=== PATIENT | male | born 1995 | race Caucasian/White ===

== ENCOUNTER 2020-12-17 17:05 | Emergency (ER) | payer OTHER, SELFPAY ==
[2020-12-17 17:35] VITALS: BP 145/77; PULSE 105; RESP 20; TEMP 36.7; O2SAT 100
--- NOTE | 2020-12-17 19:53 | ED.EYEPROB ---
HPI - Eye Problem General Chief complaint: Eye Problems Stated complaint: eye injury Time Seen by Provider: 12/17/20 19:41 Source: patient Mode of arrival: ambulatory Limitations: no limitations History of Present Illness HPI Narrative: Patient is a 25 year old male who presents complaining of right eye pain. 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 Patient reports using eyewash station at work and flushing eye x4. He denies visual changes, denies foreign body sensation at this time. chief complaint: eye pain Related Data Allergies Allergy/AdvReac Type Severity Reaction Status Date / Time No Known Allergies Allergy Unverified 12/17/20 19:21 Review of Systems Review of Systems: Narrative: CONSTITUTIONAL: Denies fever, chills, or sweats. EYES: Denies visual changes, reports redness and irritation ENT: Denies rhinorrhea, congestion, sore throat, or otalgia. CARDIOVASCULAR: Denies chest pain, palpitations, or edema. RESPIRATORY: Denies cough or dyspnea. GASTROINTESTINAL: Denies abdominal pain, nausea, vomiting, or diarrhea. GENITOURINARY: Denies dysuria or hematuria. SKIN: Denies rash or itching. MUSCULOSKELETAL: Denies back pain, joint pain, or myalgia. NEUROLOGIC: Denies headache, numbness, dizziness, or weakness. PSYCHIATRIC: Denies anxiety or depression. [facility] Past Medical History Medical History No significant past medical history Surgical History Surgical History No significant past surgical history Family History Family History (Updated 12/17/20 @ 20:08 by DAYANARA Sheehan) Other No significant family history Social History Social History (Updated 12/17/20 @ 20:09 by DAYANARA Sheehan) Smoking status: Current every day smoker Tobacco type: cigarettes Alcohol intake: current Alcohol use details: Occasional Substance use: current Substance use type: marijuana Living arrangements: with family Occupation/Education: occupation Exam Narrative: Exam Narrative: GENERAL: Well-appearing, well-nourished, and in no acute distress. HEAD: Normocephalic, atraumatic. EYES: EOMI. Right eye sclera reddened, mild edema to upper eyelid. Conjunctiva are normal. ENT: Mucous membranes pink and moist. CHEST: No respiratory distress. HEART: Regular rate and rhythm. EXTREMITIES: Normal range of motion. No edema. SKIN: Warm, dry, no rash. NEURO: No focal deficits. Alert and oriented x3. Gait steady. PSYCH: Normal affect. No signs of depression or anxiety. Course Vital Signs Vital signs: Vital Signs Temperature 36.7 C 12/17/20 17:35 Pulse Rate 105 H 12/17/20 17:35 Respiratory Rate 20 12/17/20 17:35 Blood Pressure 145/77 H 12/17/20 17:35 Pulse Oximetry 100 12/17/20 17:35 Temperature 36.7 C 12/17/20 17:35 Pulse Rate 105 H 12/17/20 17:35 Respiratory Rate 20 12/17/20 17:35 Blood Pressure 145/77 H 12/17/20 17:35 Pulse Oximetry 100 12/17/20 17:35 Reviewed. Patient has been instructed to follow-up with his PCP regarding his blood pressure. Procedures Other Procedure Procedure 1: Other Procedure: Right eye was anesthetized with 1 drop of tetracaine and anesthesia was achieved. The eye was flushed with eyewash. Lid was inverted and examined. Moistened Q-tip was used to sweep underneath the upper eyelid with no foreign bodies resulting. Cornea was dyed with fluorescein and 1 abrasion or ulceration was noted. Patient tolerated procedure well. MDM - Eye Problem MDM Narrative Medical decision making narrative: Patient therapy examined, no foreign bodies noted. Patient has corneal abrasion. Discussed antibiotic treatment as well as follow-up with accounting administrator. Patient agrees with plan of care. Patient is stable for discharge home with outpatient follow-up as discussed. Differential
[2020-12-17] MEDS: TETRACAINE HCL 0.5% OPHTH SOLN 4 ML BTL 1 DROP EACH EYE (20:03)
[2020-12-17] MEDS: FLUORESCEIN SOD 1 MG/STRIP (20:43)
[2020-12-17] MEDS: DACRIOSE EYE IRRIGATION 118 ML BOTTLE (20:43)
[2020-12-17] MEDS: TETRACAINE HCL 0.5% OPHTH SOLN 4 ML BTL 1 DROP (20:44)
== END 2020-12-17 20:47 | disposition home or self-care (01) ==
PROVIDERS: Emergency Provider Nurse Practitioner
DX: S05.01XA Injury of conjunctiva and corneal abrasion without foreign body, right eye, initial encounter (principal); F17.210 Nicotine dependence, cigarettes, uncomplicated; R03.0 Elevated blood-pressure reading, without diagnosis of hypertension; X58.XXXA Exposure to other specified factors, initial encounter
CPT/HCPCS: 99283; A9270

== ENCOUNTER 2021-04-07 13:37 | Emergency (ER) | payer OTHER, SELFPAY ==
--- NOTE | ~2021-04-07 | XR_ITS ---
EXAMINATION: XR hand LT 2V INDICATION: Right hand pain TECHNIQUE: Two views of the right hand are obtained. COMPARISON: None available FINDINGS: There is no fracture, dislocation, or subluxation. The bones, soft tissues, and joint space s are normal. IMPRESSION: 1. No acute osseous abnormality. Reviewed, dictated and finalized at location A.
[2021-04-07 13:42] VITALS: BP 142/89; PULSE 85; RESP 18; TEMP 36.8; O2SAT 100
--- NOTE | 2021-04-07 14:19 | ED.UPPEXIN ---
HPI - Extremity Injury (Upper) General Chief Complaint: Extremity Injury, Upper Stated Complaint: Smacked L hand with a hammer Time Seen by Provider: 04/07/21 13:53 Source: patient Mode of arrival: ambulatory Limitations: no limitations History of Present Illness HPI narrative: Patient is a 25 year old male who presents complaining of left hand pain after hitting hand with hammer at work. Patient has full range of motion to hand, he denies other injuries. Abrasion noted, unknown tetanus status. Patient has no significant medical history. He has not taken any [id number] medications for pain prior to arrival. Related Data Allergies Allergy/AdvReac Type Severity Reaction Status Date / Time No Known Allergies Allergy Unverified 04/07/21 13:45 Review of Systems Review of Systems: CONSTITUTIONAL: Denies fever, chills, or sweats. EYES: Denies visual changes, redness, or discharge. ENT: Denies rhinorrhea, congestion, sore throat, or otalgia. CARDIOVASCULAR: Denies chest pain, palpitations, or edema. RESPIRATORY: Denies cough or dyspnea. GASTROINTESTINAL: Denies abdominal pain, nausea, vomiting, or diarrhea. GENITOURINARY: Denies dysuria or hematuria. SKIN: Denies rash or itching. MUSCULOSKELETAL: Reports left hand pain NEUROLOGIC: Denies headache, numbness, dizziness, or weakness. PSYCHIATRIC: Denies anxiety or depression. [facility] Past Medical History Medical History No significant past medical history Surgical History Surgical History No significant past surgical history Family History Family History Other No significant family history Social History Social History Smoking status: Current every day smoker Tobacco type: cigarettes Alcohol intake: current Alcohol use details: Occasional Substance use: current Substance use type: marijuana Comments At the time of signature, I have reviewed and agree with nursing past medical, surgical, social, and family history unless otherwise noted. Please see nursing chart for further information. There is no relevant family history pertinent to the presenting complaint. Exam Narrative: GENERAL: Well-appearing, well-nourished, and in no acute distress. HEAD: Normocephalic, atraumatic. EYES: EOMI. No redness or drainage. Conjunctiva are normal. ENT: Mucous membranes pink and moist. CHEST: No respiratory distress. HEART: Regular rate and rhythm. EXTREMITIES: Normal range of motion. Mild edema left hand, small amount of ecchymosis, abrasion thenar palm, distal sensation intact good capillary refill SKIN: Warm, dry, no rash. NEURO: No focal deficits. Alert and oriented x3. Gait steady. PSYCH: Normal affect. No signs of depression or anxiety. Course Vital Signs Vital signs: Vital Signs Temperature 36.8 C 04/07/21 13:42 Pulse Rate 85 04/07/21 13:42 Respiratory Rate 18 04/07/21 13:42 Blood Pressure 142/89 H 04/07/21 13:42 Pulse Oximetry 100 04/07/21 13:42 Temperature 36.8 C 04/07/21 13:42 Pulse Rate 85 04/07/21 13:42 Respiratory Rate 18 04/07/21 13:42 Blood Pressure 142/89 H 04/07/21 13:42 Pulse Oximetry 100 04/07/21 13:42 MDM - Extremity Injury (Upper) MDM Narrative Medical decision making narrative: X-ray shows no acute osseous abnormality. Patient's wound cleaned, Neosporin applied. Patient's tetanus updated at this time, Kennedy wrap applied. Instructed on ice and elevation as well as use of NSAIDs for pain. Patient agrees with plan of care. Patient is stable for discharge home with outpatient follow-up as needed. Differential Diagnosis Differential diagnosis: Likely other (Sprain, strain, contusion, fracture) Imaging Data Radiologist's impression: ITS Impressions Hand X-Ray
[2021-04-07] MEDS: TETANUS,DIPHTHERIA,AC PERTUSSIS ADULT (0.5 ML) BOOSTRIX IM (14:50)
[2021-04-07] MEDS: KETOROLAC (*BKC) 60 MG/2 ML VIAL IM (14:50)
== END 2021-04-07 14:58 | disposition home or self-care (01) ==
PROVIDERS: Emergency Provider Nurse Practitioner
DX: S60.222A Contusion of left hand, initial encounter (principal); F17.210 Nicotine dependence, cigarettes, uncomplicated; Z23 Encounter for immunization; W20.8XXA Other cause of strike by thrown, projected or falling object, initial encounter
CPT/HCPCS: 73120; 90471; 90715; 96372; 99283; J1885

== ENCOUNTER 2022-03-19 02:27 | Emergency (ER) | payer SELFPAY ==
[2022-03-19 02:33] VITALS: BP 130/85; PULSE 113; RESP 18; TEMP 36.6; O2SAT 97
[2022-03-19 03:06] LABS: Appearance Urine Cloudy (Clear); Bilirubin Urine Negative (Negative); Blood Urine 3+ (Negative); Color Urine Yellow (Yellow); Glucose Urine UA Negative (Negative); Ketones Urine Negative (Negative); Leukocyte Esterase Ur 3+ LEU/UL (Negative); Nitrate Urine Negative (Negative); Protein Urine 2+ mg/dL (Negative); Specific Grav Ur 1.025 (1.001-1.035); pH Urine 5.5 (5.0-9.0)
[2022-03-19 03:14] LABS: Add Urine Microscopic? YES; Mucus Urine Rare /lpf; RBC Urine >75 /hpf (0-2); WBC Urine >75 /hpf
--- NOTE | 2022-03-19 03:24 | ED.MALEGU ---
HPI - Male Genitourinary General Chief complaint: Urogenital-Male Stated complaint: hematuria Time Seen by Provider: 03/19/22 02:29 History of Present Illness HPI Narrative: Patient is a 26-year-old male who presents ER with blood in urine. Reports for the last 2 days he was having burning urination and then today he developed blood in his urine. He also reports cloudy discharge that is also become bloody from his penis. Mild discomfort in his testicles but no swelling. Reports sexual activity that is unprotected. No history of STI in the past. No flank pain/nausea/vomiting. No urinary frequency urgency. Related Data Allergies Allergy/AdvReac Type Severity Reaction Status Date / Time No Known Allergies Allergy Unverified 03/19/22 02:37 Review of Systems Gastrointestinal: Gastrointestinal: Denies abdominal pain, Denies nausea and Denies vomiting Genitourinary: Genitourinary: Reports hematuria, Denies oliguria, Reports dysuria, Reports penile discharge, Reports testicular pain and Denies urinary frequency PMFSH Past Medical History Medical History No significant past medical history Surgical History Surgical History No significant past surgical history Family History Family History Other No significant family history Social History Social History Smoking status: Current every day smoker Tobacco type: cigarettes Alcohol intake: current Alcohol use details: Occasional Substance use: current Substance use type: marijuana Exam Narrative: GENERAL: Well-appearing, well-nourished, and in no acute distress. HEAD: Normocephalic, atraumatic. : Normal external genitalia including penile shaft and glans without lesions. Testicles nontender and nonedematous. Normal scrotum. No visualized urethral discharge. EXTREMITIES: Normal range of motion. No edema. NEURO: Alert and oriented x3. PSYCH: Normal mood and affect. Course Course Emergency Course: We will treat for urethritis. Oral Flagyl 2 g here as well as IM ceftriaxone. Discussed importance of taking full course of doxycycline at home. Vital Signs Vital signs: Vital Signs Temperature 97.9 F 03/19/22 02:33 Pulse Rate 113 H 03/19/22 02:33 Respiratory Rate 18 03/19/22 02:33 Blood Pressure 130/85 03/19/22 02:33 Pulse Oximetry 97 03/19/22 02:33 Oxygen Delivery Room Air 03/19/22 02:33 Temperature 97.9 F 03/19/22 02:33 Pulse Rate 113 H 03/19/22 02:33 Respiratory Rate 18 03/19/22 02:33 Blood Pressure 130/85 03/19/22 02:33 Pulse Oximetry 97 03/19/22 02:33 Oxygen Delivery Room Air 03/19/22 02:33 MDM - Male Genitourinary Lab Data Labs: Lab Results 03/19/22 03/19/22 Range/Units 02:53 02:53 Urine Color Yellow (Yellow) Urine Appearance Cloudy H (Clear) Urine pH 5.5 (5.0-9.0) Ur Specific Edwards 1.025 (1.001-1.035) Urine Protein 2+ H (Negative) mg/dL Urine Glucose (UA) Negative (Negative) mg/dL Urine Ketones Negative (Negative) mg/dL Ur Blood (Man) 3+ H (Negative) Urine Nitrate Negative (Negative) Urine Bilirubin Negative (Negative) Urine Urobilinogen 1.0 (<2.0) mg/dL Leukocyte Esterase Rfl 3+ H (Negative) RAYMOND/UL Urine RBC >75 H (0-2) /hpf Urine WBC >75 H /hpf Urine Mucus Rare /lpf C.trachomatis RNA (TMA) Pending N.gonorrhoeae RNA (TMA) Pending Urine Characteristics Cloudy Discharge Plan Discharge Clinical Impression: Urethritis Patient Disposition: Home, Self-Care Condition: Stable Instructions: Antibiotic Form, Nonspecific Urethritis in Men (ED) Additional Instructions: Take the full course of doxycycline. It is 7 d
[2022-03-19] MEDS: metroNIDAZOLE 250 MG TABLET 2000 MG PO (03:38)
[2022-03-19] MEDS: LIDOCAINE HCL 1% LOCAL INJ 20 ML VIAL (03:40)
[2022-03-19] MEDS: cefTRIAXone 1 GM VIAL 0.5 GM IM (03:40)
[2022-03-19 03:52] VITALS: BP 125/86; PULSE 98; RESP 18; O2SAT 99
== END 2022-03-19 03:53 | disposition home or self-care (01) ==
PROVIDERS: Emergency Provider Emergency Medicine
DX: N34.2 Other urethritis (principal); F17.210 Nicotine dependence, cigarettes, uncomplicated
CPT/HCPCS: 81001; 87086; 87491; 87591; 96372; 99283; A9270; J0696

== ENCOUNTER 2025-09-03 09:45 | Emergency (ER) | payer OTHER, SELFPAY ==
--- NOTE | ~2025-09-03 | XR_ITS ---
Clinical History: pain throughout R sided neck Examination: XR cervical spine 4-5V Comparison: None Technique: 4 views cervical spine Findings: No acute fracture or listhesis. Vertebral bodies normal height and alignment. Prevertebral soft tissues within normal limits. Disc spaces maintained. Mild degenerative changes. Mainly C5-7. Impression: 1. No acute fracture or listhesis cervical spine. Reviewed, dictated and finalized at location R. [employer]UGAL SUPERVISOR Impression: 1. No acute fracture or listhesis cervical spine.
--- NOTE | ~2025-09-03 | XR_ITS ---
Examination: XR humerus RT Clinical History: pain Comparison: None Technique: 2 views right humerus Findings/impression: 1. No fracture or acute abnormality identified. Reviewed, dictated and finalized at location R. [employer]MENT CHAIR
--- OUTSIDE RECORDS SUMMARY | 2025-09-03 10:03 | XMS_ITS | Encounter Summary ---
Author Organization [facility] Address [address] [place] [address] Care Team Providers Care Integration Manager Name Role Phone Daniel Fox MD Primary Care Provider [phone] Encounter Details Date Type Department Care Team (Late st Contact Info) Description 07/19/2024 Ophth Exam [facility] - Ophthalmology [address] [place] [address] Jack Barnhart MD [address] [place] [address] Social History Tobacco Use Types Packs/Day Years Used Date Smoking Tobacco: Never Smokeless Tobacco: Never Alcohol Use Standard Drinks/Week Comments No 0 (1 standard drink = 0.6 oz pur e alcohol) Sex and Gender Information Value Date Recorded Sex Assigned at Not on file Legal Sex Male 10:41 AM CDT Gender Identity Not on file Sexual Orientation Not on file documented as of this encounter Plan of Treatment Not on file documented as of this encounter Visit Diagnoses Not on filedocumented in this encounter Care Teams Integration Manager Relationship Specialty Start Date End Date Daniel Fox MD [address] [phone] PCP - General Internal Medicine 04/10/13 documented as of this encounter
--- OUTSIDE RECORDS SUMMARY | 2025-09-03 10:03 | XMS_ITS | Clinical Summary ---
Author Organization [facility] Address [address] [facility] [place] [address] Care Team Providers Care Traffic Manager Name Role Phone Daniel Fox MD Primary Care Provider [phone] Source Comments [facility],non-owned Affiliates and Associated Physician Practices is amultiple site organization consisting of ambulatory clinics and hospital sitesin [place], [place], [place] and [place]. This disclosure is being madepursuant to the Care Everywhere program and may not contain all information available regarding this patient. Last updated 18.[employer] [facility] Allergies No known active allergies Medications * Be aware that medications may not be up to date on this document. Alwaysverify current medications with the patient. cyclopentolate 1% (Cyclogyl) 1 % ophthalmic solution Instill 1 (one) drop into left eye once daily 5 mL 2 07/20/2024 Active Active Problems Problem Noted Date Diagnosed Date Degeneration of lumbar or lumbosacral interverte bral disc 04/26/2013 Social History Tobacco Use Types Packs/Day Years Used Date Smoking Tobacco: Never Smokeless Tobacco: Never Tobacco Cessation:Counseling Given: Not Answered Alcohol Use Standard Drinks/Week Comments No 0 (1 standard drink = 0.6 oz pur e alcohol) Sex and Gender Information Value Date Recorded Sex Assigned at Not on file Legal Sex Male 10:41 AM CDT Gender Identity Not on file Sexual Orientation Not on file Last Filed Vital Signs Vital Sign Reading Time Taken Comments Blood Pressure 141/85 07/19/2024 9:16 PM TURKEY PICKER Pulse 87 07/19/2024 9:16 PM TURKEY PICKER Temperature 36.7 C (98 F) 07/19/2024 9:16 PM TURKEY PICKER Respiratory Rate 18 07/19/2024 9:16 PM TURKEY PICKER Oxygen Saturation 100% 07/19/2024 9:16 PM TURKEY PICKER Inhaled Oxygen Concentration - - Weight 92.5 kg (204 lb) 07/19/2024 9:16 PM TURKEY PICKER Height 185.4 cm (6' 1) 07/19/2024 9:16 PM TURKEY PICKER Body Mass Index 26.91 07/19/2024 9:16 PM TURKEY PICKER Plan of Treatment Health Maintenance Due Date Last Done Comments HIV SCREENING 2009 HEPATITIS C SCREENING 08/16/2012 DTAP/TDAP/TD VACCINES (1 - Tdap) 2013 HEPATITIS B VACCINE (1 of 3 - 19+ 3-dose series) 2013 HPV VACCINE (1 - 3-dose SCDM series) 2021 DEPRESSION SCREENING 09/05/2024 COVID-19 VACCINE (1 - 2024-2 6 season) 2025 INFLUENZA VACCINE (#1) 2025 ZOSTER VACCINE (1 of 2) 2044 HIB VACCINE Aged Out No longer eligi ble based on patient's age to complete this topic MENINGOCOCCAL (Group B) VACC INE SHARED DECISION-MAKING Aged Out No longer eligibl e based on patient's age to complete this topic MENINGOCOCCAL GROUPS A/C/Y/W VACCINE Aged Out No longer eligible b ased on patient's age to complete this topic PNEUMOCOCCAL VACCINE Aged Out No long er eligible based on patient's age to complete this topic Insurance [address] [place], [place] [id number] [place] [address] Care Teams Traffic Manager Relationship Specialty Start Date End Date Daniel Fox MD [address] [phone] PCP - General Internal Medicine 04/10/13
[2025-09-03 10:04] VITALS: BP 143/97; PULSE 83; RESP 16; TEMP 36.6; O2SAT 99
--- OUTSIDE RECORDS SUMMARY | 2025-09-03 11:03 | XMS_ITS | Encounter Summary ---
Author Organization [facility] Address [address] [place] [address] Care Team Providers Care Creative Strategist Name Role Phone Daniel Fox MD Primary Care Provider [phone] Encounter Details Date Type Department Care Team (Late st Contact Info) Description 07/19/2024 Ophth Exam [facility] - Ophthalmology [address] [place] [address] Jack Barnhart MD [address] [place] [address] Social History Tobacco Use Types Packs/Day Years [...] on filedocumented in this encounter Care Teams Creative Strategist Relationship Specialty Start Date End Date Daniel Fox MD [address] [phone] PCP - General Internal Medicine 04/10/13 documented as of this encounter
--- OUTSIDE RECORDS SUMMARY | 2025-09-03 11:03 | XMS_ITS | Clinical Summary ---
Author Organization [facility] Address [address] [facility] [place] [address] Care Team Providers Care Clerk Analyst Name Role Phone Daniel Fox MD Primary Care Provider [phone] Source Comments [facility]non-owned Affiliates and Associated Physician Practices is amultiple site organization consisting of ambulatory clinics and hospital sitesin [place] and [place]. This disclosure is being madepursuant to the Care Everywhere program and may not contain all information available regarding this patient. Last updated 18.[employer] [facility] Allergies No known active allergies Medications * [...] Comments Blood Pressure 141/85 07/19/2024 9:16 PM MASTER PRINTER Pulse 87 07/19/2024 9:16 PM MASTER PRINTER Temperature 36.7 C (98 F) 07/19/2024 9:16 PM MASTER PRINTER Respiratory Rate 18 07/19/2024 9:16 PM MASTER PRINTER Oxygen Saturation 100% 07/19/2024 9:16 PM MASTER PRINTER Inhaled Oxygen Concentration - - Weight 92.5 kg (204 lb) 07/19/2024 9:16 PM MASTER PRINTER Height 185.4 cm (6' 1) 07/19/2024 9:16 PM MASTER PRINTER Body Mass Index 26.91 07/19/2024 9:16 PM MASTER PRINTER Plan of Treatment Health Maintenance Due Date [...] to complete this topic Insurance [address] [place], [place] [id number] [place] [address] Care Teams Clerk Analyst Relationship Specialty Start Date End Date Daniel Fox MD [address] [phone] PCP - General Internal Medicine 04/10/13
[2025-09-03 11:49] VITALS: BP 134/94; PULSE 104; RESP 16; O2SAT 97
[2025-09-03] MEDS: KETOROLAC (*BKC) 60 MG/2 ML VIAL IM (11:50)
--- NOTE | 2025-09-03 12:43 | ED_ITS ---
HPI - Extremity Injury (Upper) General Chief Complaint: Extremity Injury, Upper Stated Complaint: right shoulder/neck pain x 1 day Time Seen by Provider: 09/03/25 10:08 Source: patient Mode of arrival: ambulatory Limitations: no limitations History of Present Illness HPI narrative: Patient is a 30 y/o male who presents to the ED with c/o right upper arm and neck pain. Patient reports having pain since yesterday. Reports having pain in his right-sided neck, extending into his right upper arm, worse with movement. He attempted to go to work yesterday and today, but had increasing pain. Denied improvement with ibuprofen yesterday. Has not taken anything for pain today. Does note that he recently moved and may have strained himself with this. Denies numbness, weakness. Related Data Allergies Allergy/AdvReac Type Severity Reaction Status Date / Time No Known Allergies Allergy Unverified 03/19/22 02:37 Review of Systems Review of Systems: All systems reviewed & are unremarkable except as noted in HPI. All systems reviewed & are unremarkable except as noted in HPI and below PMFSH Past Medical History Medical History No significant past medical history Surgical History Surgical History No significant past surgical history Family History Family History Other No significant family history Social History Social History Smoking status: Current every day smoker Tobacco type: cigarettes Alcohol intake: current Alcohol use details: Occasional Substance use: current Substance use type: marijuana Living arrangements: with family Occupation/Education: occupation Exam Narrative: GENERAL: Well appearing, well-nourished, non-toxic, in no acute distress. HEAD: Normocephalic, atraumatic. NECK: No significant midline spinal tenderness. Tenderness to palpation throughout right-sided paraspinal musculature/upper trapezius region RESPIRATORY: Airway patent, respirations nonlabored. Clear to auscultation bilaterally, no rales, rhonchi, wheezing. CARDIOVASCULAR: Regular rate and rhythm MUSCULOSKELETAL: Moves all extremities. No gross deformities. Tenderness to palpation diffusely throughout right distal humerus region, along area of biceps insertion. Biceps tendon is intact. No significant bony tenderness over right shoulder joint. Sensation intact throughout right upper extremity. No weakness. SKIN: Warm, dry, normal color. NEURO: A&O X3. Speech clear. Cranial nerves II-XII grossly intact. Steady gait. No ataxic movements. PSYCHIATRIC: Appropriate mood and affect. Normal interaction. Course Vital Signs Vital signs: Vital Signs Temperature 97.9 F 09/03/25 10:04 Pulse Rate 83 09/03/25 10:04 Respiratory Rate 16 09/03/25 10:04 Blood Pressure 143/97 H 09/03/25 10:04 Pulse Oximetry 99 09/03/25 10:04 Oxygen Delivery Room Air 09/03/25 10:04 Temperature 97.9 F 09/03/25 10:04 Pulse Rate 104 H 09/03/25 11:49 Respiratory Rate 16 09/03/25 11:49 Blood Pressure 134/94 H 09/03/25 11:49 Pulse Oximetry 97 09/03/25 11:49 Oxygen Delivery Room Air 09/03/25 10:04 [facility] Narrative Medical decision making narrative: Patient?s injury is consistent with musculoskeletal etiology. No signs of neurologic or vascular compromise on physical examination. Compartments are soft without signs of compartment syndrome. XR of cervical spine and right humerus negative for acute findings. Pain is most consistent with muscular strain. He was given Toradol in the ED and reports significant improvement with this. Patient is felt to be stable for discharge home and further outpatient management and treatment. Discussed continued rice therapy, NSAIDs. Will prescribe short course of muscle relaxers. Given return precautions. Discharged in stable condition. Given work note. Differential Diagnosis Differential Diagnosis: Humerus fracture, shoulder fracture, muscle strain, biceps tendon rupture, cervical strain/fracture Medical Records I have reviewed the following patient records and this information was taken into consideration when formulating the assessment and plan.: previous labs, previous ER visits, previous hospitalizations and previous clinic visits Imaging Data Attestation: I personally reviewed and interpreted this imaging study as follows: Radiologist's impression: ITS Impressions Cervical Spine X-Ray 09/03/25 12:35 Impression: 1. No acute fracture or listhesis cervical spine. Discharge Plan Discharge Clinical Impression: Strain of cervical portion of right trapezius muscle Strain of right upper arm Qualifiers: Encounter type: initial encounter Qualified Code(s): S46.911A - Strain of unspecified muscle, fascia and tendon at shoulder and upper arm level, right arm, initial encounter Patient Disposition: Home Condition: Stable Instructions: Antibiotic Form, Cervical Strain (ED), Arm Pain (ED) Additional Instructions: Continue Tylenol/ibuprofen as needed for pain. You can take 600 mg of ibuprofen and 1000 mg of Tylenol every 6 hours. You may also use ice for pain. Take muscle relaxers as needed and prescribed. Recommend taking these at night as they may cause sedation. Do not drive, operate heavy machinery, drink alcohol while on muscle relaxers as this may cause further sedation. Follow-up with your primary care doctor for further evaluation if needed. Return to the ED for worsening or severe pain, new injury, numbness/weakness, or any other symptoms of concern. Patient Language: Chinese Prescriptions: New cyclobenzaprine 5 mg tablet 5 mg PO TID PRN (Reason: muscle spasm) Qty: 15 0RF No Action erythromycin 5 mg/gram (0.5 %) ointment 0.5 inch RIGHT EYE QID 5 Days Qty: 1 0RF doxycycline monohydrate 100 mg capsule 100 mg PO BID Qty: 14 0RF Follow-up/Referrals: Freddy Rothman MD [Physician, Family Practice] UNKNOWN,DOCTOR [Primary Care Provider] Stand Alone Forms: Work/School Release IP Time of Disposition: 12:58
== END 2025-09-03 13:10 | disposition home or self-care (01) ==
PROVIDERS: Emergency Provider Physician Assistant
DX: S16.1XXA Strain of muscle, fascia and tendon at neck level, initial encounter (principal); S46.911A Strain of unspecified muscle, fascia and tendon at shoulder and upper arm level, right arm, initial encounter; F17.210 Nicotine dependence, cigarettes, uncomplicated; X50.0XXA Overexertion from strenuous movement or load, initial encounter
CPT/HCPCS: 72050; 73060; 96372; 99284; J1885